=== PATIENT | male | born 1975 | race Caucasian/White ===

== ENCOUNTER 2020-02-06 10:51 | Inpatient (IN) | payer MEDICAID ==
[~2020-02-06] VITALS: Ht 175.3 cm; Wt 99.8 kg
[2020-02-06] MEDS ORDERED: IV NS 1000 ML 1,000 ML IV ONE (11:05)
[2020-02-06] MEDS ORDERED: AZITHROMYCIN 500MG/ D5W 250ML IVPB **ER PYXIS ONLY IV ONE (11:27)
[2020-02-06] MEDS ORDERED: CEFTRIAXONE /D5W 50ML IVPB **ER PYXIS IV ONE (11:27)
[2020-02-06] MEDS ORDERED: CEFTRIAXONE 1 G in IV DEXTROSE 5% 50 ML IV ONE (11:30)
[2020-02-06] MEDS ORDERED: AZITHROMYCIN IV 500 MG in IV DEXTROSE 5% 250 ML IV ONE (11:30)
[2020-02-06 11:54] LABS: BASOPHILS # (AUTO) 0.1 K/uL (0.0-8.0); BASOPHILS % (AUTO) 0.8 % (0.0-2.0); EOSINOPHILS # (AUTO) 0.4 K/uL (0.0-0.7); EOSINOPHILS % (AUTO) 2.7 % (0.0-7.0); HEMATOCRIT 40.1 % (36.7-47.1); HEMOGLOBIN 13.2 g/dL (12.5-16.3); LYMPHOCYTES # (AUTO) 1.9 K/uL (20.0-40.0); LYMPHOCYTES % (AUTO) 11.9 % (20.5-51.5); MEAN CORPUSCULAR HEMOGLOBIN 30.8 uug (23.8-33.4); MEAN CORPUSCULAR HGB CONC 33 g/dL (32.5-36.3); MEAN CORPUSCULAR VOLUME 93.4 fL (73.0-96.2); MONOCYTES # (AUTO) 1.1 K/uL (2.0-10.0); MONOCYTES % (AUTO) 7.3 % (0.0-11.0); NEUTROPHILS # (AUTO) 12.1 K/uL (1.8-8.9); NEUTROPHILS % (AUTO) 77.3 % (38.5-71.5); PLATELET COUNT (AUTO) 389 K/uL (152-348); RED BLOOD CELL COUNT(AUTO) 4.29 MIL/uL (4.06-5.63); WHITE BLOOD COUNT (AUTO) 15.7 K/uL (3.6-10.2)
[2020-02-06 12:04] LABS: CREATININE 0.8 mg/dL (0.6-1.3)
[2020-02-06 12:21] LABS: BILIRUBIN,TOTAL 0.6 mg/dL (0.2-1.0); TOTAL PROTEIN, SERUM 7.3 g/dL (6.4-8.2)
--- NOTE | 2020-02-06 13:10 | NUR ---
pt transfered to floor in stable condition, following hospital guidelines for covid 19. pt reamined on o2 via nc. breathing normally, no sign of distress. pt voided 500 ml in urinal.
--- NOTE | 2020-02-06 13:45 | NUR ---
Received patient in bed awake, alert and oriented. Patient is stable at this time, saturating well on 5L of oxygen. Patient denies any pain. IV intact and patent on left hand hep lock. No [id number] notes at this time, patient's temp is 99.2. Safety measures in place with call light and belongings within reach. Will continue to monitor.
[2020-02-06] MEDS ORDERED: ACETAMINOPHEN 650 MG/20.3 ML LIQUID UDC GT PRN (14:15)
[2020-02-06] MEDS ORDERED: ONDANSETRON 4 MG/2 ML VIAL IV PRN (14:15)
[2020-02-06] MEDS: ENOXAPARIN SODIUM 40 MG/0.4 ML DISP.SYRIN SQ SCH (15:09)
[2020-02-06 15:39] VITALS: BP 124/65
[2020-02-06] MEDS ORDERED: DEXAMETHASONE 2 MG TABLET PO SCH (17:00)
--- NOTE | 2020-02-06 18:44 | NUR ---
Patient is currently sleeping in bed. All safety precautions in place, bed in lowest position and locked, with call light and belonging in reach. Will endorse to oncoming nurse.
--- NOTE | 2020-02-06 19:25 | NUR ---
Patient in bed, awake. Patient denies any SOB or pain at this time. Patient is on 5L NC saturating WNL. Vitals stable. Pt is afebrile. LH 20G heplock is intact and patent. Patient is having few episodes of non productive cough. Safety measures in place. Bed low and locked in position. Call light within reach. Will continue with the plan of care.
[2020-02-06 20:46] VITALS: BP 125/68
[2020-02-07] VITALS: BP 110/66
[2020-02-07 04:52] VITALS: BP 122/64
[2020-02-07 06:04] LABS: BASOPHILS # (AUTO) 0.2 K/uL (0.0-8.0); BASOPHILS % (AUTO) 1.3 % (0.0-2.0); EOSINOPHILS # (AUTO) 0.3 K/uL (0.0-0.7); EOSINOPHILS % (AUTO) 1.9 % (0.0-7.0); HEMATOCRIT 40.3 % (36.7-47.1); HEMOGLOBIN 13.2 g/dL (12.5-16.3); LYMPHOCYTES # (AUTO) 1.2 K/uL (20.0-40.0); LYMPHOCYTES % (AUTO) 7.1 % (20.5-51.5); MEAN CORPUSCULAR HEMOGLOBIN 31.2 uug (23.8-33.4); MEAN CORPUSCULAR HGB CONC 33 g/dL (32.5-36.3); MEAN CORPUSCULAR VOLUME 94.9 fL (73.0-96.2); MONOCYTES % (AUTO) 5.8 % (0.0-11.0); NEUTROPHILS # (AUTO) 13.8 K/uL (1.8-8.9); NEUTROPHILS % (AUTO) 83.9 % (38.5-71.5); PLATELET COUNT (AUTO) 408 K/uL (152-348); RED BLOOD CELL COUNT(AUTO) 4.24 MIL/uL (4.06-5.63); WHITE BLOOD COUNT (AUTO) 16.5 K/uL (3.6-10.2)
[2020-02-07 06:34] LABS: BILIRUBIN,DIRECT 0.3 mg/dL (0.0-0.2); BILIRUBIN,TOTAL 0.7 mg/dL (0.2-1.0); POTASSIUM 4.7 mmol/L (3.5-5.1); TOTAL PROTEIN, SERUM 7.4 g/dL (6.4-8.2)
--- NOTE | 2020-02-07 06:53 | NUR ---
Pt slept throughout the night. Patient is awake and denies any acute distress or pain at this time. Vitals stable, on 5L NC saturating at 95%. Pt is Sinus Tachy 109 on tele monitor. Comfort care and needs attended. Safety measures in place. Bed low and locked in position. Call light within reach. Will endorse to the oncoming nurse accordingly.
--- NOTE | 2020-02-07 07:30 | NUR ---
RECIEVED PT SITTING UP AT EDGE OF BED. AWAKE, ALERT AND ORIENTED X4. NO APPARENT SOB NOTED. PT ON O2 5LNC SATURATION IS 92%. HR -SR-ST. NO C/O CHEST PAIN. AFEBRILE. PT COUGHS ON AND OFF, NON PRODUCTIVE. DENIES OF ANY DISCOMFORTS OR PAIN.
[2020-02-07] MEDS: DEXAMETHASONE 4 MG TABLET PO SCH (10:25)
[2020-02-07 12:00] VITALS: BP 105/72
[2020-02-07] MEDS: CEFTRIAXONE 1 G in IV DEXTROSE 5% 50 ML IV SCH (12:36)
[2020-02-07] MEDS: AZITHROMYCIN IV 500 MG in IV DEXTROSE 5% 250 ML IV SCH (13:13)
[2020-02-07 16:00] VITALS: BP 115/70
--- NOTE | 2020-02-07 16:30 | NUR ---
PT AMBULATED TO BR AND TOOK OFF HIS O2. SATURATION DROPPED IN THE 70'S, APPEARS TO BE SOB. PROVIDED A LONG TUBING NC O2. PLACED ON 6L AND SATURATION UP TO 93-94%.
--- NOTE | 2020-02-07 19:45 | NUR ---
Received patient alert and able to make needs known, ambulates denies pain or discomfort at this time, on O2 at 5LPM via NC,saturating 92 %. Heplock on left hand 20g patent and intact.Will continue to monitor.
[2020-02-07 20:00] VITALS: BP 138/64
[2020-02-07] MEDS: ENOXAPARIN SODIUM 40 MG/0.4 ML DISP.SYRIN SQ SCH (20:19)
[2020-02-08 00:26] VITALS: BP 112/74
[2020-02-08] MEDS ORDERED: hydrALAZINE HCL 10 MG TABLET PO SCH (00:45)
--- NOTE | 2020-02-08 03:30 | NUR ---
Patient noted with episodes of nonsustained mobitz 1.
[2020-02-08 04:00] VITALS: BP 122/69
[2020-02-08 06:21] LABS: BASOPHILS % (AUTO) 0.2 % (0.0-2.0); HEMATOCRIT 41.5 % (36.7-47.1); HEMOGLOBIN 13.7 g/dL (12.5-16.3); LYMPHOCYTES % (AUTO) 5.4 % (20.5-51.5); MEAN CORPUSCULAR HEMOGLOBIN 31.3 uug (23.8-33.4); MEAN CORPUSCULAR HGB CONC 33 g/dL (32.5-36.3); MEAN CORPUSCULAR VOLUME 94.7 fL (73.0-96.2); MONOCYTES # (AUTO) 0.6 K/uL (2.0-10.0); MONOCYTES % (AUTO) 3.3 % (0.0-11.0); NEUTROPHILS # (AUTO) 17.7 K/uL (1.8-8.9); NEUTROPHILS % (AUTO) 91.1 % (38.5-71.5); PLATELET COUNT (AUTO) 453 K/uL (152-348); RED BLOOD CELL COUNT(AUTO) 4.38 MIL/uL (4.06-5.63); WHITE BLOOD COUNT (AUTO) 19.4 K/uL (3.6-10.2)
[2020-02-08 06:50] LABS: CREATININE 0.9 mg/dL (0.6-1.3); POTASSIUM 4.3 mmol/L (3.5-5.1)
--- NOTE | 2020-02-08 07:00 | NUR ---
pt rested well in between care; tolerated 6L humidified oxygen; observed to have sleep apnea last night.
--- NOTE | 2020-02-08 08:14 | NUR ---
received pt. resting in bed alert oriented x4. pt denies pain. pt. does have SOB on 6 L NC. pt saturating highest at 90 with periods of desaturation from 86 up. switching NC to Face mask to see if pt. does better on face mask. will give pt. PRN inhaler. pt. has non productive cough. safety measures in place. call light within reach. will continue to monitor pt.
[2020-02-08] MEDS: ALBUTEROL SULFATE 8 GM HFA.AER.AD IH PRN ×2 (08:49→16:22)
[2020-02-08] MEDS: DEXAMETHASONE 4 MG TABLET PO SCH (08:49)
[2020-02-08] MEDS: CEFTRIAXONE 1 G in IV DEXTROSE 5% 50 ML IV SCH (11:00)
--- NOTE | 2020-02-08 11:31 | NUR ---
seen by ANA ROSA Blas pt. desaturating on 10 L face mask. Called RT to put pt. on high flow nasal canula. RT Javed will come up shortly.
[2020-02-08 12:04] VITALS: BP 102/68
[2020-02-08] MEDS: AZITHROMYCIN IV 500 MG in IV DEXTROSE 5% 250 ML IV SCH (12:14)
[2020-02-08 12:28] LABS: ABG BASE EXCESS 9.2 mmol/L; ABG HCO3 36.6 mmol/L; ABG PCO2 62.3 mmHg (35.0-45.0); ABG PH 7.387 (7.350-7.450); ABG PO2 59.8 mmHg (75.0-100.0); ABG SITE LEFT RADIAL; ABG TOTAL HEMOGLOBIN 14.1 G/dL (13.5-18.0); COHb 1.8 % (0.5-1.5); MetHb 0.2 % (0.0-1.5); O2Hb 89.2 % (94.0-97.0)
[2020-02-08 16:00] VITALS: BP 115/66
--- NOTE | 2020-02-08 16:24 | NUR ---
covid results negative reported by lab
[2020-02-08 17:50] LABS: *BILIRUBIN,URIN NEGATIVE (NEGATIVE); *BLOOD, URINE NEGATIVE (NEGATIVE); *CLARITY,URINE CLEAR (CLEAR); *KETONES,URINE NEGATIVE (NEGATIVE); *UROBILINOGEN,URINE 0.2 E.U./dl (NORMAL); LEUKOCYTE ESTERASE ,URINE NEGATIVE (NEGATIVE); NITRITE, URINE NEGATIVE (NEGATIVE); PH,URINE 5.5 (5.0-8.0); UGLUCOSE NEGATIVE (NEGATIVE)
[2020-02-08 17:51] LABS: *COLOR,URINE YELLOW (YELLOW)
--- NOTE | 2020-02-08 18:30 | NUR ---
RT put pt. on non rebreather mask and did ABGs. Results came back and RT and BAIL BONDING AGENT think pt. may have COPD and to put pt. back on simple face mask at 6 L and O2 goal of 88-92% Pt. saturating 89-90% on simple face mask. BAIL BONDING AGENT wanted viral panel to be ordered. New order for another covid test by ID doctor.
--- NOTE | 2020-02-08 20:00 | NUR ---
Patient received into care, laying in bed, resting comfortably. Pt is alert/oriented x3 and has no complaints of pain or discomfort at this time. Pt is currently wearing a simple mask with O2 running at 6L/min and an oxygen saturation rate of 90%. All safety, fall, and isolation precaution measures are in place. Will continue to monitor and assess.
[2020-02-08 20:12] VITALS: BP 113/75
[2020-02-08] MEDS: ENOXAPARIN SODIUM 40 MG/0.4 ML DISP.SYRIN SQ SCH (20:27)
[2020-02-08 21:46] LABS: BACTERIA,URINE FEW /HPF (NONE SEEN); RBC,URINE 0-3 /HPF (0-3); SQUAMOUS EPITHELIAL CELL,UR FEW /HPF (NONE SEEN); WBC,URINE 0-3 /HPF (0-3)
--- NOTE | 2020-02-08 23:53 | NUR ---
This nurse spoke with patient during hourly rounding and patient advised this nurse that he has a history of asthma. This nurse will add this information to [facility].
[2020-02-09 00:13] VITALS: BP 105/67
--- NOTE | 2020-02-09 03:05 | NUR ---
This nurse was notified by MARYANA Jaramillo that patient's oxygen saturation is between 78 - 82% with simple mask at 6L/min. Charge nurse Radha contacted respiratory and this nurse elevated pt's head of bed and stayed in room until Dustin from respiratory arrived. RT Dustin placed pt on non-rebreather at max oxygen and pt's oxygen saturation climbed to 90%. This nurse stayed with patient until oxygen saturation was at 94%. Non-rebreather left in place and this nurse will continue to closely monitor and assess oxygen saturation.
[2020-02-09 04:20] VITALS: BP 101/67
--- NOTE | 2020-02-09 05:00 | NUR ---
Patient slept intermittently throughout night with no complaints of pain or discomfort verbalized or noted/observed by this nurse. Pt has numerous episodes of sleep apnea this shift that may have resulted in patient becoming hypoxic at 0303h. The hypoxic episode was addressed with RT Chan replacing the simple mask running oxygen at 6L/min with a non-rebreather mask running oxygen at 15L/min. The patient oxygen saturation increased from the 80's to the mid 90's. This nurse continued to closely observe pt's oxygen saturation since application of non-rebreather mask. All safety, fall, and isolation precaution measures remain in place. Call light and personal items remain within reach.
[2020-02-09 06:20] LABS: BASOPHILS # (AUTO) 0.1 K/uL (0.0-8.0); BASOPHILS % (AUTO) 0.3 % (0.0-2.0); EOSINOPHILS # (AUTO) 0.1 K/uL (0.0-0.7); EOSINOPHILS % (AUTO) 0.3 % (0.0-7.0); HEMATOCRIT 41.1 % (36.7-47.1); HEMOGLOBIN 13.5 g/dL (12.5-16.3); LYMPHOCYTES % (AUTO) 9.3 % (20.5-51.5); MEAN CORPUSCULAR HEMOGLOBIN 30.8 uug (23.8-33.4); MEAN CORPUSCULAR HGB CONC 33 g/dL (32.5-36.3); MEAN CORPUSCULAR VOLUME 93.6 fL (73.0-96.2); MONOCYTES # (AUTO) 1.2 K/uL (2.0-10.0); MONOCYTES % (AUTO) 5.6 % (0.0-11.0); NEUTROPHILS # (AUTO) 17.8 K/uL (1.8-8.9); NEUTROPHILS % (AUTO) 84.5 % (38.5-71.5); PLATELET COUNT (AUTO) 497 K/uL (152-348); RED BLOOD CELL COUNT(AUTO) 4.39 MIL/uL (4.06-5.63)
[2020-02-09 06:30] LABS: CREATININE 0.8 mg/dL (0.6-1.3); MAGNESIUM 2.1 mg/dL (1.8-2.4); PHOSPHOROUS 4.2 mg/dL (2.5-4.9); POTASSIUM 4.3 mmol/L (3.5-5.1)
--- NOTE | 2020-02-09 08:00 | NUR ---
Received Patient in bed, awake, Malay Speaking. On Oxygen at 10L via Non rebreather Mask, saturating 90-92%. with episode of dry cough, No complain of SOB. No complain of Pain or discomfort. kept clean and comfortable. Will continue to monitor.
[2020-02-09] MEDS: DEXAMETHASONE 4 MG TABLET PO SCH (08:36)
[2020-02-09] MEDS: ACETAzolamide SODIUM 500 MG VIAL IV SCH (10:02)
--- NOTE | 2020-02-09 10:30 | NUR ---
Patient had a mobitz type 2 on satellite project site monitor, Dr. Champion made aware.
[2020-02-09] MEDS: ALBUTEROL SULFATE 8 GM HFA.AER.AD IH PRN (10:43)
--- NOTE | 2020-02-09 10:54 | NUR ---
Patient on 10L via Non rebreather Mask, tried weaning down the Oxygen to 8L via Non rebreather, saturating 82-83%, SHOP TECH Kaleb made aware. ABG STAT was Ordered.
[2020-02-09 11:16] LABS: ABG BASE EXCESS 6.7 mmol/L; ABG HCO3 33.2 mmol/L; ABG PCO2 55.1 mmHg (35.0-45.0); ABG PH 7.398 (7.350-7.450); ABG PO2 54.8 mmHg (75.0-100.0); ABG SITE RIGHT RADIAL; ABG TOTAL HEMOGLOBIN 14.5 G/dL (13.5-18.0); COHb 1.2 % (0.5-1.5); MetHb 0.1 % (0.0-1.5); O2Hb 87.5 % (94.0-97.0)
--- NOTE | 2020-02-09 11:30 | NUR ---
Patient on Oxygen 10L via Non rebreather Mask, saturating 89-92%. No complain of SOB.
[2020-02-09] MEDS: CEFTRIAXONE 1 G in IV DEXTROSE 5% 50 ML IV SCH (11:59)
[2020-02-09 12:00] VITALS: BP 107/71
--- NOTE | 2020-02-09 12:00 | NUR ---
Patient is saying that he is not taking any home medication, relayed to pharmacy.
--- NOTE | 2020-02-09 12:30 | NUR ---
Placed on Oxygen at 7L via nasal canula, saturating 90-92%.
[2020-02-09] MEDS: AZITHROMYCIN IV 500 MG in IV DEXTROSE 5% 250 ML IV SCH (12:44)
[2020-02-09 16:00] VITALS: BP 104/70
--- NOTE | 2020-02-09 17:31 | NUR ---
received negative 2nd covid 19 result, Brandon OSEGUERA made aware.
--- NOTE | 2020-02-09 18:12 | NUR ---
Patient in bed, awake, alert and verbally responsive. On Oxygen at 6L via nasal canula, saturating 89-92%. On continuos Pulse Ox monitor. No complain of SOB. No complain of pain or discomfort. Covid 19 result is Negative x 2, kept clean and comfortable. Will Endorse to Oncoming Nurse.
--- NOTE | 2020-02-09 20:00 | NUR ---
Received patient awake and alert. Patient shows no signs or symptoms of distress at this time. Vital signs stable Afebrile at this time. O2 saturation 88% on 7L NC. Bed set to lowest position. Call light within reach. Side rails X2 are up. Will continue to monitor patient. Addendum: 02/09/20 at 2144 by TANIKA GAGE RN NSR on tele monitor
[2020-02-09 20:10] VITALS: BP 117/71
[2020-02-09] MEDS: ENOXAPARIN SODIUM 40 MG/0.4 ML DISP.SYRIN SQ SCH (20:12)
--- NOTE | 2020-02-09 22:30 | NUR ---
O2 saturation 83% after urinating. Patient placed on simple mask 6L and is now saturating 91%. Will continue to monitor patient.
[2020-02-10 00:16] VITALS: BP 103/54
--- NOTE | 2020-02-10 02:29 | NUR ---
Pt had one episode of 2nd degree AV block type II at 0215 and lasted for 15 seconds. HR dropped to 40. Pt now NSR on tele monitor 90s. Patient in no apparent distress at this time. Patient is resting comfortably in bed. Will continue to monitor patient.
[2020-02-10 04:40] VITALS: BP 103/60
--- NOTE | 2020-02-10 06:03 | NUR ---
Patient shows no signs or symptoms of distress at this time. Vital signs stable. NSR on tele monitor. Patient now on 8L simple mask to maintain O2 saturation 88-92%. Will endorse patient to day shift nurse in stable condition.
[2020-02-10 07:13] LABS: BASOPHILS # (AUTO) 0.1 K/uL (0.0-8.0); BASOPHILS % (AUTO) 0.4 % (0.0-2.0); EOSINOPHILS # (AUTO) 0.1 K/uL (0.0-0.7); EOSINOPHILS % (AUTO) 0.5 % (0.0-7.0); HEMOGLOBIN 14.5 g/dL (12.5-16.3); LYMPHOCYTES # (AUTO) 2.2 K/uL (20.0-40.0); LYMPHOCYTES % (AUTO) 11.1 % (20.5-51.5); MEAN CORPUSCULAR HEMOGLOBIN 30.4 uug (23.8-33.4); MEAN CORPUSCULAR HGB CONC 32 g/dL (32.5-36.3); MEAN CORPUSCULAR VOLUME 94.2 fL (73.0-96.2); MONOCYTES # (AUTO) 1.2 K/uL (2.0-10.0); MONOCYTES % (AUTO) 5.9 % (0.0-11.0); NEUTROPHILS # (AUTO) 16.2 K/uL (1.8-8.9); NEUTROPHILS % (AUTO) 82.1 % (38.5-71.5); PLATELET COUNT (AUTO) 531 K/uL (152-348); RED BLOOD CELL COUNT(AUTO) 4.78 MIL/uL (4.06-5.63); WHITE BLOOD COUNT (AUTO) 19.8 K/uL (3.6-10.2)
--- NOTE | 2020-02-10 07:30 | NUR ---
Received patient in bed,Awake. On Oxygen at 8L via simple mask saturating 90%. No complain of SOB, still with episode of dry cough but No complain of Sore throat. Patient walked to the toilet, saturation went down to 82-84%. Placed patient on nasal canula at 8L, saturating 88-90%. No complain of Pain or discomfort. Afebrile. Kept clean and comfortable. Will continue to monitor.
[2020-02-10 07:32] LABS: CREATININE 0.9 mg/dL (0.6-1.3); MAGNESIUM 2.4 mg/dL (1.8-2.4); PHOSPHOROUS 4.4 mg/dL (2.5-4.9); POTASSIUM 4.2 mmol/L (3.5-5.1)
[2020-02-10] MEDS: ACETAzolamide SODIUM 500 MG VIAL IV SCH (08:12)
[2020-02-10] MEDS: DEXAMETHASONE 4 MG TABLET PO SCH (08:13)
[2020-02-10 09:47] VITALS: BP 111/64
[2020-02-10] MEDS ORDERED: IOHEXOL 350 100 ML INFUS..BTL ONE (10:19)
[2020-02-10] MEDS ORDERED: IV NORMAL SALINE 250 ML IV ONE (10:19)
[2020-02-10] MEDS ORDERED: SWABABLE VALVE TRANSFER SET EA MC ONE (10:19)
[2020-02-10] MEDS: CEFTRIAXONE 1 G in IV DEXTROSE 5% 50 ML IV SCH (11:24)
[2020-02-10] MEDS: AZITHROMYCIN IV 500 MG in IV DEXTROSE 5% 250 ML IV SCH (12:35)
[2020-02-10] MEDS: IPRATROPIUM BROMIDE 0.5 MG/2.5 ML NEBU NEB SCH ×2 (13:48→22:24)
[2020-02-10] MEDS: ALBUTEROL SULFATE 2.5 MG/ 0.5 ML NEBU NEB SCH ×2 (13:48→22:24)
[2020-02-10 16:19] VITALS: BP 119/71
--- NOTE | 2020-02-10 18:02 | NUR ---
Patient in bed, awake and verbally responsive. On Oxygen at 6L via Venturi Mask, saturating 90%. No complain of Pain or discomfort noted. All needs attended and met. Kept clean and comfortable. All needs attended and met. Will endorse to Oncoming Nurse.
--- NOTE | 2020-02-10 20:00 | NUR ---
Patient received into care sitting up on side of bed. Pt is alert/oriented x3, has no complaints of pain or discomfort, and is currently receiving oxygen at 6L/min via venturi mask. Oxygen saturation on bedside monitor is at 85 to 86%, this nurse increased oxygen to 8L/min and patient is now saturating at 88-90%All safety and fall precaution measures are in place. Call light and personal items are within reach at all times. Will continue to monitor and assess.
[2020-02-10] MEDS: ENOXAPARIN SODIUM 40 MG/0.4 ML DISP.SYRIN SQ SCH (20:08)
[2020-02-10 20:18] VITALS: BP 111/70
--- NOTE | 2020-02-10 23:52 | NUR ---
This nurse was notified by BATCH TESTER that pt's oxygen saturation was at 80% This nurse found pt asleep and woke him, which resulted in pt's oxygen saturation increasing to 85%, with the venturi mask on 6L/min oxygen. This nurse contacted RT who provided pt with prescribed BiPAP setup at 15+/5+ 18 RR. Pt now has an oxygen saturation ranging from 89-92% at rest. Will continue to monitor and assess.
[2020-02-11 00:12] VITALS: BP 103/60
--- NOTE | 2020-02-11 04:02 | NUR ---
PT PLACED ON BI/PAP WITH LARGE MASK @ 23:45, WITH SETTINGS, 15/5, RR18, 40%, KEEP SAT ABOVE 90%, PT TENDS TO BREATH RAPID AT TIMES, PULSE OXY CONT AT BEDSIDE, SAT 91-92% APPROX, PT DOES WAKE UP TIMES, DOING BETTER, WITH BI/PAP.Layo ROSEP Addendum: 02/11/20 at 0404 by HILARIO MATTHEWS RT Amended: Links added.
[2020-02-11 04:16] VITALS: BP 111/74
--- NOTE | 2020-02-11 05:00 | NUR ---
Pt slept intermittently throughout night after application of BiPAP. There were no further episodes of hypoxia after BiPAP applied and patient has an oxygen saturation that is ranging between 89-92% All prescribed medications for this shift were provided to patient and tolerated well, with no ASE verbalized by patient or noted/observed by this nurse. All safety, fall, and isolation precautions remain in place. Call light and personal items remain within reach.
[2020-02-11] MEDS: IPRATROPIUM BROMIDE 0.5 MG/2.5 ML NEBU NEB SCH ×3 (07:53→20:35)
[2020-02-11] MEDS: ALBUTEROL SULFATE 2.5 MG/ 0.5 ML NEBU NEB SCH ×3 (07:54→20:35)
[2020-02-11] MEDS: DEXAMETHASONE 4 MG TABLET PO SCH (08:51)
[2020-02-11] MEDS: ACETAzolamide SODIUM 500 MG VIAL IV SCH (08:51)
[2020-02-11 08:59] LABS: BASOPHILS # (AUTO) 0.3 K/uL (0.0-8.0); BASOPHILS % (AUTO) 1.4 % (0.0-2.0); EOSINOPHILS # (AUTO) 0.2 K/uL (0.0-0.7); EOSINOPHILS % (AUTO) 1.2 % (0.0-7.0); HEMATOCRIT 46.1 % (36.7-47.1); HEMOGLOBIN 15.2 g/dL (12.5-16.3); LYMPHOCYTES # (AUTO) 2.7 K/uL (20.0-40.0); LYMPHOCYTES % (AUTO) 13.9 % (20.5-51.5); MEAN CORPUSCULAR HEMOGLOBIN 30.6 uug (23.8-33.4); MEAN CORPUSCULAR HGB CONC 33 g/dL (32.5-36.3); MEAN CORPUSCULAR VOLUME 92.7 fL (73.0-96.2); MONOCYTES # (AUTO) 1.1 K/uL (2.0-10.0); MONOCYTES % (AUTO) 5.6 % (0.0-11.0); NEUTROPHILS % (AUTO) 77.9 % (38.5-71.5); PLATELET COUNT (AUTO) 568 K/uL (152-348); RED BLOOD CELL COUNT(AUTO) 4.97 MIL/uL (4.06-5.63); WHITE BLOOD COUNT (AUTO) 19.2 K/uL (3.6-10.2)
[2020-02-11 09:16] LABS: CREATININE 0.8 mg/dL (0.6-1.3); MAGNESIUM 2.3 mg/dL (1.8-2.4); POTASSIUM 3.7 mmol/L (3.5-5.1)
--- NOTE | 2020-02-11 10:10 | NUR ---
Received patient in room, patient is AAO x 4, Romansh speaking mostly but able to express self in Kazakh. Pt. is on Verturi-mask at this time at 6LPM with O2 sating at 90%. Routine breathing treatment administered by RT. All other vital signs stable at this time. Afebrile. Due morning medications administered as ordered. IV site on Left hand gauge 20 intact and patent. Patient is mostly independent for self care. Safety measures in place, needs attended and met and will continue with care.
[2020-02-11 11:40] VITALS: BP 103/64
[2020-02-11] MEDS: CEFTRIAXONE 1 G in IV DEXTROSE 5% 50 ML IV SCH (12:10)
[2020-02-11] MEDS: AZITHROMYCIN IV 500 MG in IV DEXTROSE 5% 250 ML IV SCH (13:09)
[2020-02-11] MEDS ORDERED: DICYCLOMINE HCL 10 MG CAPSULE PO SCH (13:15)
--- NOTE | 2020-02-11 13:50 | NUR ---
IV ATB administered as ordered. Patient compliant with care. VS stable at this time. on continuos O2 sat monitoring. Needs attended and will continue with care.
[2020-02-11] MEDS ORDERED: DICYCLOMINE HCL 10 MG CAPSULE PO ONE (14:00)
[2020-02-11 16:00] VITALS: BP 107/58
--- NOTE | 2020-02-11 19:56 | NUR ---
End of shift report given to PM nurse.
[2020-02-11 20:50] VITALS: BP 100/63
[2020-02-11] MEDS: ENOXAPARIN SODIUM 40 MG/0.4 ML DISP.SYRIN SQ SCH (20:50)
[2020-02-12 01:07] VITALS: BP 100/61
--- NOTE | 2020-02-12 02:26 | NUR ---
Received Patient in bed. AAO x3. On O2 6 L via venturi mask. Bruneian speaking but can communicate in Bengali as well. Able to make needs known. No complain of pain. All due medication given as ordered and well tolerated. CPAP machine was utilized throughout the night. Safety measures maintained, fall prevention observed. All needs attended promptly. Bed in locked and low position, side rails up x2 for safety, bed alarm on. Call light and frequently using items within reach. Continue to monitor and will endorse to the oncoming nurse accordingly.
[2020-02-12 05:36] VITALS: BP 106/64
--- NOTE | 2020-02-12 06:01 | NUR ---
IV line was inserted on left hand, G 22. Will endorse to oncoming nurse.
[2020-02-12 07:03] LABS: BASOPHILS # (AUTO) 0.1 K/uL (0.0-8.0); BASOPHILS % (AUTO) 0.4 % (0.0-2.0); EOSINOPHILS # (AUTO) 0.3 K/uL (0.0-0.7); EOSINOPHILS % (AUTO) 1.4 % (0.0-7.0); HEMATOCRIT 43.8 % (36.7-47.1); HEMOGLOBIN 14.4 g/dL (12.5-16.3); LYMPHOCYTES # (AUTO) 2.8 K/uL (20.0-40.0); LYMPHOCYTES % (AUTO) 13.9 % (20.5-51.5); MEAN CORPUSCULAR HEMOGLOBIN 30.6 uug (23.8-33.4); MEAN CORPUSCULAR HGB CONC 33 g/dL (32.5-36.3); MEAN CORPUSCULAR VOLUME 92.9 fL (73.0-96.2); NEUTROPHILS % (AUTO) 79.3 % (38.5-71.5); PLATELET COUNT (AUTO) 615 K/uL (152-348); RED BLOOD CELL COUNT(AUTO) 4.71 MIL/uL (4.06-5.63); WHITE BLOOD COUNT (AUTO) 20.2 K/uL (3.6-10.2)
[2020-02-12 07:14] LABS: MAGNESIUM 2.3 mg/dL (1.8-2.4); PHOSPHOROUS 4.2 mg/dL (2.5-4.9)
[2020-02-12] MEDS: ALBUTEROL SULFATE 2.5 MG/ 0.5 ML NEBU NEB SCH ×3 (08:05→21:24)
[2020-02-12] MEDS: IPRATROPIUM BROMIDE 0.5 MG/2.5 ML NEBU NEB SCH ×3 (08:05→21:23)
--- NOTE | 2020-02-12 08:10 | NUR ---
Receive patient in bed, awake, alert and oriented. Patient is complaining of dryness in his throat but shows no sign of respiratory distress. Saturating well on 6 L venturi mask. The IV on left hand is a 22 gauge and is intact and patent. Patient is afebrile at this time. Safety precautions in place, bed is locked in the lowest position and patient' call light and belongings are within reach. Will continue to monitor.
[2020-02-12] MEDS: DEXAMETHASONE 4 MG TABLET PO SCH (08:29)
[2020-02-12] MEDS: ACETAzolamide SODIUM 500 MG VIAL IV SCH (08:29)
--- NOTE | 2020-02-12 10:00 | NUR ---
Made hospitalist Wan aware of patient complaint about dryness in his throat, he said the patient could be place on humidified oxygen. RT made aware but says it will not work because the pressure is too high. Charge nurse also made aware. Will continue to hydrate and monitor patient.
[2020-02-12] MEDS: CEFTRIAXONE 1 G in IV DEXTROSE 5% 50 ML IV SCH (11:23)
[2020-02-12 12:00] VITALS: BP 103/67
--- NOTE | 2020-02-12 15:49 | NUR ---
Patient is still on 6L on a venturi mask and still saturating within the range of 88-92%. Current oxygen saturation is 91%. Will continue to observe and monitor.
[2020-02-12 16:37] VITALS: BP 103/67
--- NOTE | 2020-02-12 18:11 | NUR ---
Patient's IV is infiltrated and leaking fluids within the dressing. Removed IV and covered with gauge and tape. Will try inserting a new IV line. Addendum: 02/12/20 at 1813 by MADAI CHIN RN Patient does not report any pain and no redness was noted. Will continue to monitor.
--- NOTE | 2020-02-12 18:30 | NUR ---
IV inserted on the right hand.
--- NOTE | 2020-02-12 18:43 | NUR ---
Patient shows no signs or symptoms of distress at this time. Vital signs stable. Patient now on 6L venturi mask to maintain O2 saturation 88-92%. Will endorse patient to day shift nurse in stable condition.
--- NOTE | 2020-02-12 19:30 | NUR ---
RECEIVED PT AWAKE, ALERT AND ORIENTEDX4. PT IN NO ACUTE RESPIRATORY DISTRESS. IV INTACT. PT ON 6L VENTURI MASK. SAFETY AND COMFORT PROVIDED. WILL CONTINUE TO MONITOR.
[2020-02-12] MEDS: ENOXAPARIN SODIUM 40 MG/0.4 ML DISP.SYRIN SQ SCH (20:30)
[2020-02-12 21:02] VITALS: BP 103/60
[2020-02-13 00:07] VITALS: BP 99/45
[2020-02-13 04:55] VITALS: BP 103/62
--- NOTE | 2020-02-13 06:26 | NUR ---
PT SLEPT INTERMITTENTLY. PT IN NO ACUTE DISTRESS. IV INTACT. PT ON 6L VENTURI MASK. PT REFUSED HIS BIPAP. PRESCRIBED MEDICATION GIVEN AND PT TOLERATED IT WELL. TYLENOL 650 MG GIVEN AT PRN FOR PAIN. PT TOLERATED IT WELL.SAFETY AND COMFORT PROVIDED. ALL NEEDS ARE MET. WILL ENDORSE TO INCOMING NURSE FOR CONTINUITY OF CARE.
[2020-02-13 06:33] LABS: BASOPHILS # (AUTO) 0.1 K/uL (0.0-8.0); BASOPHILS % (AUTO) 0.4 % (0.0-2.0); EOSINOPHILS # (AUTO) 0.3 K/uL (0.0-0.7); EOSINOPHILS % (AUTO) 1.6 % (0.0-7.0); HEMATOCRIT 43.9 % (36.7-47.1); HEMOGLOBIN 14.5 g/dL (12.5-16.3); LYMPHOCYTES # (AUTO) 3.1 K/uL (20.0-40.0); LYMPHOCYTES % (AUTO) 15.8 % (20.5-51.5); MEAN CORPUSCULAR HEMOGLOBIN 30.4 uug (23.8-33.4); MEAN CORPUSCULAR HGB CONC 33 g/dL (32.5-36.3); MONOCYTES # (AUTO) 1.1 K/uL (2.0-10.0); MONOCYTES % (AUTO) 5.5 % (0.0-11.0); NEUTROPHILS # (AUTO) 15.2 K/uL (1.8-8.9); NEUTROPHILS % (AUTO) 76.7 % (38.5-71.5); PLATELET COUNT (AUTO) 587 K/uL (152-348); RED BLOOD CELL COUNT(AUTO) 4.77 MIL/uL (4.06-5.63); WHITE BLOOD COUNT (AUTO) 19.8 K/uL (3.6-10.2)
[2020-02-13 06:55] LABS: BILIRUBIN,TOTAL 0.5 mg/dL (0.2-1.0); MAGNESIUM 2.1 mg/dL (1.8-2.4); PHOSPHOROUS 3.8 mg/dL (2.5-4.9); POTASSIUM 3.7 mmol/L (3.5-5.1); TOTAL PROTEIN, SERUM 7.5 g/dL (6.4-8.2)
--- NOTE | 2020-02-13 07:30 | NUR ---
PATIENT IS IN BED SLEEPING DEEPLY AND SNORING WITH HIS FACE MASK OFF HIS FACE OFF AND ON AND WHEN ITS OFRF HIS SATS DROPS TO 81 HAS TO BE WOKEN UP AND FACE MASK REAPPLIED HE IS ON VENTURI MASK AT 6L/M NOTED WITH EPISODES OF COUGHING PER REPORT PATIENT REFUSED THE BIPAP LAST NITE REMAIN ON RESPIRATORY ISOLATION AT THIS TIME WILL CONTINUE TO OBSERVE.CALL LIGHTS AND HIS PERSONAL BELONGINGS ARE WITHIN EASY REACH.
[2020-02-13] MEDS: IPRATROPIUM BROMIDE 0.5 MG/2.5 ML NEBU NEB SCH ×3 (08:02→19:38)
[2020-02-13] MEDS: ALBUTEROL SULFATE 2.5 MG/ 0.5 ML NEBU NEB SCH ×3 (08:02→19:38)
[2020-02-13] MEDS: DEXAMETHASONE 4 MG TABLET PO SCH (08:30)
[2020-02-13] MEDS: ACETAzolamide SODIUM 500 MG VIAL IV SCH (08:30)
--- NOTE | 2020-02-13 08:33 | NUR ---
PATIENT SEEN AND EXAMINED BY EVIE OSEGUERA WITH NEW ORDERS AND NOTED ORACLE SOA ARCHITECT AWARE THAT THE PATIENT SPOUSE WILL LIKE TO SPEAK WITH HIM AND HE STATED OKAY WILL CALL HER.
--- NOTE | 2020-02-13 11:00 | NUR ---
PHYSICAL THERAPY HERE FOR EVALUATION AND STATED THAT PATIENT IS ABLE TO AMBULATE BUT CANNOT GO LONGER DISTANCE DUE TO GETS SHORT OF BREATH ON ROOM AIR HIS O2 IS AT 6L AT THIS TIME AND THE PHYSICAL THERAPIST STATED WILL CALL MICHELLE OSEGUERA RE HER CONCERNS.
[2020-02-13 11:47] VITALS: BP 108/69
[2020-02-13 15:27] VITALS: BP 105/67
--- NOTE | 2020-02-13 17:38 | NUR ---
RESTING IN BED WITH OCCASSIONAL COUGH STATED ITS DRY BUT HE WAS ABLE TO SPIT UP SOME SECRETION FOR SPUTUM TEST EARLIER TODAY.REMAIN ON O2 BY VETRI MASK AT 6L/M WITH SATS AT 93-94 PERCENT DENIES DISCOMFORTS BUT STATED THAT HE IS TIRED OF COUGHING ALL THE TIME REMAIN ON COVID ISOLATION ORDERED CALL LIGHTS AND PERSONAL BELONGINGS ARE WITHIN EASY REACH NOT IN DISTRESS AT THIS TIME.
--- NOTE | 2020-02-13 19:20 | NUR ---
Received patient sitting upright in bed. AAOx4, mainly Albanian speaking. Noted with occasional non-productive cough. On 50% O2 at 6LPM via venturi mask. O2 sat at 95% at this time. Denies any SOB or pain. NSR on tele at 92/min. VS WNL. Droplet and contact precaution observed. Safety measure initiated and call mena within reached.
[2020-02-13 19:40] VITALS: BP 108/74
[2020-02-13] MEDS: ENOXAPARIN SODIUM 40 MG/0.4 ML DISP.SYRIN SQ SCH (20:16)
[2020-02-14 00:29] VITALS: BP 99/60
[2020-02-14 05:11] VITALS: BP 105/43
--- NOTE | 2020-02-14 06:11 | NUR ---
Slept well last night. Still with occasional non-productive cough. 50% O2 at 6LPM via venturi mask. O2 sat at 94%. Denies any SOB or pain. NSR on tele at 70/min. Needs assessed and attended to. Droplet and contact precaution maintained. Safety measure maintained and call mena within reached.
[2020-02-14 06:21] LABS: BASOPHILS # (AUTO) 0.1 K/uL (0.0-8.0); BASOPHILS % (AUTO) 0.4 % (0.0-2.0); EOSINOPHILS # (AUTO) 0.3 K/uL (0.0-0.7); EOSINOPHILS % (AUTO) 1.9 % (0.0-7.0); HEMATOCRIT 42.7 % (36.7-47.1); HEMOGLOBIN 14.1 g/dL (12.5-16.3); LYMPHOCYTES # (AUTO) 2.6 K/uL (20.0-40.0); LYMPHOCYTES % (AUTO) 14.2 % (20.5-51.5); MEAN CORPUSCULAR HEMOGLOBIN 30.4 uug (23.8-33.4); MEAN CORPUSCULAR HGB CONC 33 g/dL (32.5-36.3); MONOCYTES # (AUTO) 1.1 K/uL (2.0-10.0); MONOCYTES % (AUTO) 5.9 % (0.0-11.0); NEUTROPHILS # (AUTO) 14.4 K/uL (1.8-8.9); NEUTROPHILS % (AUTO) 77.6 % (38.5-71.5); PLATELET COUNT (AUTO) 621 K/uL (152-348); RED BLOOD CELL COUNT(AUTO) 4.65 MIL/uL (4.06-5.63); WHITE BLOOD COUNT (AUTO) 18.6 K/uL (3.6-10.2)
[2020-02-14 06:34] LABS: MAGNESIUM 2.1 mg/dL (1.8-2.4); PHOSPHOROUS 3.5 mg/dL (2.5-4.9); POTASSIUM 3.5 mmol/L (3.5-5.1)
--- NOTE | 2020-02-14 07:30 | NUR ---
IN BED SLEEPING AND SNORING LOUD WITH O2 BY VENTRI MASK AT 6L/M NO SOB AT THIS TIME CALL LIGHTS AND PERSONAL BELONGINGS ARE WITHIN EASY REACH MADE COMFORTABLE WILL CONTINUE TO OBSERVE.
[2020-02-14] MEDS: DEXAMETHASONE 4 MG TABLET PO SCH (08:14)
[2020-02-14] MEDS: ACETAzolamide SODIUM 500 MG VIAL IV SCH (08:14)
[2020-02-14] MEDS: ALBUTEROL SULFATE 2.5 MG/ 0.5 ML NEBU NEB SCH ×3 (08:28→19:30)
[2020-02-14] MEDS: IPRATROPIUM BROMIDE 0.5 MG/2.5 ML NEBU NEB SCH ×3 (08:28→19:30)
--- NOTE | 2020-02-14 11:51 | NUR ---
PATIENT SEEN HEATHER EXAMINED BY EMMA OSEGUERA WITH NEW ORDERS AND NOTED.
[2020-02-14 12:00] VITALS: BP 120/68
[2020-02-14 16:34] VITALS: BP 110/67
--- NOTE | 2020-02-14 17:44 | NUR ---
DR GARBER HERE SEEN PATIENT WITH NEW ORDERS AND NOTED.
--- NOTE | 2020-02-14 18:15 | NUR ---
BEHAVIORAL HEALTH PROFESSIONAL HERE AND RESPIRATORY PATOGEN COLLECTED ORDERED
--- NOTE | 2020-02-14 18:52 | NUR ---
PER THE PHARMACY PATIENT NEEDS TO HAVE EKG CHECKED TOMORROW PATIENT WILL BE STARTING LEVAQUIN AND DIFLUCAN EMMA AWARE AND NOTED
[2020-02-14 20:00] VITALS: BP 93/57
--- NOTE | 2020-02-14 20:00 | NUR ---
Report received. Patient on COVID 19 isolation. 2 tests have been negative, but patient has been symptomatic. AAO. Denies SOB. O2 6 L venturi mask; sat 94%. Pharmacist here; patient will be started on Levaquin and Diflucan. Will monitor EKG. proced tech aware. Addendum: 02/15/20 at 0220 by AUDI MAYNARD RN Amended: Links added.
[2020-02-14] MEDS: ENOXAPARIN SODIUM 40 MG/0.4 ML DISP.SYRIN SQ SCH (20:54)
[2020-02-14] MEDS: levoFLOXacin 750MG/D5W 750 MG in PREMIXED 1 EACH IV SCH (20:55)
[2020-02-14] MEDS: FLUCONAZOLE 400MG /NS 200ML IV 400 MG in PREMIXED 1 EACH IV SCH (22:10)
[2020-02-15] VITALS: BP 102/63
[2020-02-15 04:00] VITALS: BP 109/79
[2020-02-15 06:21] LABS: BASOPHILS # (AUTO) 0.1 K/uL (0.0-8.0); BASOPHILS % (AUTO) 0.4 % (0.0-2.0); EOSINOPHILS # (AUTO) 0.2 K/uL (0.0-0.7); EOSINOPHILS % (AUTO) 1.1 % (0.0-7.0); HEMOGLOBIN 13.9 g/dL (12.5-16.3); LYMPHOCYTES # (AUTO) 2.3 K/uL (20.0-40.0); LYMPHOCYTES % (AUTO) 14.6 % (20.5-51.5); MEAN CORPUSCULAR HEMOGLOBIN 29.9 uug (23.8-33.4); MEAN CORPUSCULAR HGB CONC 33 g/dL (32.5-36.3); MEAN CORPUSCULAR VOLUME 91.9 fL (73.0-96.2); MONOCYTES # (AUTO) 1.1 K/uL (2.0-10.0); MONOCYTES % (AUTO) 6.9 % (0.0-11.0); NEUTROPHILS # (AUTO) 11.9 K/uL (1.8-8.9); PLATELET COUNT (AUTO) 603 K/uL (152-348); RED BLOOD CELL COUNT(AUTO) 4.67 MIL/uL (4.06-5.63); WHITE BLOOD COUNT (AUTO) 15.5 K/uL (3.6-10.2)
--- NOTE | 2020-02-15 06:39 | NUR ---
Remains on 6L O2 via venturi mask; sat 92-97%. [place] MAIN. Slept fairly well during the night. Addendum: 02/15/20 at 0640 by AUDI MAYNARD RN Amended: Links added.
[2020-02-15 06:47] LABS: CREATININE 0.9 mg/dL (0.6-1.3); POTASSIUM 3.8 mmol/L (3.5-5.1)
--- NOTE | 2020-02-15 08:00 | NUR ---
PATIENT IS ALERT, ORIENTED X4, CONTINUOUS ON VENTURI MASK ON 6 LITER OF OXYGEN, SATURATING AT 90-92%ALSO NOTED WITH NONPRODUCTIVE COUGH, PATIENT STATED HE FEELS FINE, NO ACUTE DISTRESS NOTED, CONTINUE TO MONITOR
[2020-02-15] MEDS: IPRATROPIUM BROMIDE 0.5 MG/2.5 ML NEBU NEB SCH ×3 (08:07→19:37)
[2020-02-15] MEDS: ALBUTEROL SULFATE 2.5 MG/ 0.5 ML NEBU NEB SCH ×3 (08:07→19:37)
[2020-02-15 08:57] VITALS: BP 106/71
[2020-02-15] MEDS: DEXAMETHASONE 4 MG TABLET PO SCH (08:58)
[2020-02-15 11:58] VITALS: BP 93/50
--- NOTE | 2020-02-15 12:09 | NUR ---
PATIENT IS ALERT, ORIENTED X4, SATURATING AT 88-91% WITH VENTURI MASK AT 6LITER OF OXYGEN, PATIENT STATED HE FEELS OK, TALKING TO HIS FAMILY, TOLERATING GOING TO BATHROOM, AND MEALS, NO DISTRESS NOTED, MORGUE ATTENDANT EMMA AWARE. CONTINUE TO MONITOR CLOSELY.
[2020-02-15 16:12] VITALS: BP 100/67
--- NOTE | 2020-02-15 18:29 | NUR ---
patient laying down in his bed, saturating at 93% with venturi mask at 6 liter, noted with nonproductive cough, still on droplet precautions, able to tolerate meals and ambulating to the bathroom. no distress noted, patient stated he feels OK, watching TV. continue to monitor
--- NOTE | 2020-02-15 19:40 | NUR ---
ALERT ORIENTED, NO SOB NO CHEST PAIN. PATIENT ON VENTURI MASK AT 6LPM, OXYGEN SAT 93 TO 100%, OXYGEN WENT LOWER WHEN DOING ACTIVITY SUCH TOILET, BUT GOES BACK TO NORMAL OXYGEN SOON PATIENT AT REST. CONT TO MONITOR.
[2020-02-15 20:30] VITALS: BP 108/54
[2020-02-15] MEDS: levoFLOXacin 750MG/D5W 750 MG in PREMIXED 1 EACH IV SCH (20:41)
[2020-02-15] MEDS: ENOXAPARIN SODIUM 40 MG/0.4 ML DISP.SYRIN SQ SCH (21:18)
[2020-02-15] MEDS: FLUCONAZOLE 400MG /NS 200ML IV 400 MG in PREMIXED 1 EACH IV SCH (22:42)
[2020-02-16] VITALS: BP 110/68
[2020-02-16 04:00] VITALS: BP 110/57
--- NOTE | 2020-02-16 06:29 | NUR ---
PATIENT ALERT ORIENTED, NO SOB NO CHEST PAIN, PATIENT ON TELE MONITOR SINUS RYTHM. PATIENT HAS COMPLAIN OF PAIN AT THIS TIME, PATIENT ON CONTINIOUS VENTURI MASK AT 6LPM, OXYGENT SAT RANGE FROM 88 TO 100%. PATIENT HAS NO COMPLAIN OF PAIN NOR DISCOMFORT, SOB, CONT TO MONITOR.
--- NOTE | 2020-02-16 07:30 | NUR ---
Received patient in bed, awake and verbally responsive. On Oxygen at 6L via venturi mask. saturating 92%. with episode of dry cough. No complain of Pain or discomfort. kept clean and comfortable. Will continue to monitor.
[2020-02-16] MEDS: ALBUTEROL SULFATE 2.5 MG/ 0.5 ML NEBU NEB SCH ×3 (08:30→19:14)
[2020-02-16] MEDS: IPRATROPIUM BROMIDE 0.5 MG/2.5 ML NEBU NEB SCH ×3 (08:30→19:14)
[2020-02-16] MEDS: DEXAMETHASONE 4 MG TABLET PO SCH (08:33)
[2020-02-16 11:40] VITALS: BP 133/86
[2020-02-16 12:07] LABS: ABG BASE EXCESS 3.9 mmol/L; ABG PCO2 50.3 mmHg (35.0-45.0); ABG PH 7.393 (7.350-7.450); ABG PO2 72.9 mmHg (75.0-100.0); ABG SITE RIGHT RADIAL; ABG TOTAL HEMOGLOBIN 15.7 G/dL (13.5-18.0); COHb 1.3 % (0.5-1.5); MetHb 0.2 % (0.0-1.5); VENT MODE Mask - Venturi - 50%
--- NOTE | 2020-02-16 12:36 | NUR ---
patient was placed on FiO2 35% by RT, will continue to monitor.
[2020-02-16 16:00] VITALS: BP 120/74
--- NOTE | 2020-02-16 18:16 | NUR ---
Patient is awake, alert and responsive. On Oxygen at 3L/FiO2 35% via venturi mask saturating 90-93%. No complain of pain or discomfort. All needs attended and met. kept clean and comfortable. Will endorse to Oncoming nurse.
--- NOTE | 2020-02-16 19:30 | NUR ---
patient received in bed watching soccer on TV. PIV intact and patent on saline lock. AAOx3. no s/s of acute distress. v/s stable at this time. on venturi mask 6L sat at 92%. NSR on tele monitor. safety measures in place. will attend to needs and administered needed medications. will continue to monitor and assess throughout shift.
[2020-02-16 20:10] VITALS: BP 131/76
[2020-02-16] MEDS: ENOXAPARIN SODIUM 40 MG/0.4 ML DISP.SYRIN SQ SCH (20:20)
[2020-02-16] MEDS: levoFLOXacin 750MG/D5W 750 MG in PREMIXED 1 EACH IV SCH (21:03)
[2020-02-16] MEDS: FLUCONAZOLE 400MG /NS 200ML IV 400 MG in PREMIXED 1 EACH IV SCH (21:42)
[2020-02-17 00:12] VITALS: BP 106/63
[2020-02-17] MEDS: IPRATROPIUM BROMIDE 0.5 MG/2.5 ML NEBU NEB SCH ×5 (01:19→19:26)
[2020-02-17] MEDS: ALBUTEROL SULFATE 2.5 MG/ 0.5 ML NEBU NEB SCH ×5 (01:20→19:26)
--- NOTE | 2020-02-17 03:58 | NUR ---
Medication scan @ 0357 due to error. Administered treatment to PT while awake @ 0120. Refer to RT interventions.
[2020-02-17 04:12] VITALS: BP 117/71
[2020-02-17 06:19] LABS: BASOPHILS # (AUTO) 0.1 K/uL (0.0-8.0); BASOPHILS % (AUTO) 0.4 % (0.0-2.0); EOSINOPHILS % (AUTO) 0.1 % (0.0-7.0); HEMATOCRIT 43.4 % (36.7-47.1); HEMOGLOBIN 14.1 g/dL (12.5-16.3); LYMPHOCYTES # (AUTO) 1.8 K/uL (20.0-40.0); LYMPHOCYTES % (AUTO) 11.5 % (20.5-51.5); MEAN CORPUSCULAR HEMOGLOBIN 29.8 uug (23.8-33.4); MEAN CORPUSCULAR HGB CONC 32 g/dL (32.5-36.3); MEAN CORPUSCULAR VOLUME 92.1 fL (73.0-96.2); MONOCYTES % (AUTO) 6.5 % (0.0-11.0); NEUTROPHILS # (AUTO) 12.8 K/uL (1.8-8.9); NEUTROPHILS % (AUTO) 81.5 % (38.5-71.5); PLATELET COUNT (AUTO) 561 K/uL (152-348); RED BLOOD CELL COUNT(AUTO) 4.72 MIL/uL (4.06-5.63); WHITE BLOOD COUNT (AUTO) 15.7 K/uL (3.6-10.2)
[2020-02-17 06:27] LABS: CREATININE 0.9 mg/dL (0.6-1.3); POTASSIUM 4.1 mmol/L (3.5-5.1)
--- NOTE | 2020-02-17 08:30 | NUR ---
Patient in bed, awake, alert and verbally responsive. Paced on Oxygen at 3L via Nasal canula, saturating 88-94%. No complain of pain or discomfort. Afebrile. Kept clean and comfortable. Will continue to monitor.
[2020-02-17 11:35] VITALS: BP 118/84
[2020-02-17 16:29] VITALS: BP 129/95
--- NOTE | 2020-02-17 17:59 | NUR ---
Patient in bed, awake, alert and verbally responsive. On Oxygen at 3L via nasal canula, saturating 92%. No complain of pain or discomfort. Afebrile. All needs attended and met. Kept the call light within easy reach. Will endorse to Oncoming Nurse.
--- NOTE | 2020-02-17 19:30 | NUR ---
Patient in bed. AAOx4. Pt denies any acute distress or pain at this time. Pt is NSR 90 on tele monitor. V/S stable, on 3L NC saturating at 90%. Pt having episodes of non productive cough. Pt afebrile. RAC IV is intact. Safety measures in place. Bed low and locked in position. Personal belongings and call light within reach. Will continue with the plan of care.
[2020-02-17] MEDS: levoFLOXacin 750MG/D5W 750 MG in PREMIXED 1 EACH IV SCH (20:05)
[2020-02-17 20:10] VITALS: BP 120/80
[2020-02-17] MEDS: ENOXAPARIN SODIUM 40 MG/0.4 ML DISP.SYRIN SQ SCH (20:58)
[2020-02-17] MEDS: FLUCONAZOLE 400MG /NS 200ML IV 400 MG in PREMIXED 1 EACH IV SCH (22:04)
[2020-02-18 00:21] VITALS: BP 122/88
[2020-02-18 05:43] VITALS: BP 106/74
[2020-02-18 06:23] LABS: BASOPHILS # (AUTO) 0.1 K/uL (0.0-8.0); BASOPHILS % (AUTO) 0.8 % (0.0-2.0); EOSINOPHILS # (AUTO) 0.4 K/uL (0.0-0.7); EOSINOPHILS % (AUTO) 2.4 % (0.0-7.0); HEMOGLOBIN 14.3 g/dL (12.5-16.3); LYMPHOCYTES # (AUTO) 3.7 K/uL (20.0-40.0); LYMPHOCYTES % (AUTO) 24.5 % (20.5-51.5); MEAN CORPUSCULAR HEMOGLOBIN 29.9 uug (23.8-33.4); MEAN CORPUSCULAR HGB CONC 32 g/dL (32.5-36.3); MEAN CORPUSCULAR VOLUME 92.3 fL (73.0-96.2); MONOCYTES % (AUTO) 6.6 % (0.0-11.0); NEUTROPHILS # (AUTO) 9.8 K/uL (1.8-8.9); NEUTROPHILS % (AUTO) 65.7 % (38.5-71.5); PLATELET COUNT (AUTO) 553 K/uL (152-348); RED BLOOD CELL COUNT(AUTO) 4.77 MIL/uL (4.06-5.63); WHITE BLOOD COUNT (AUTO) 14.9 K/uL (3.6-10.2)
[2020-02-18 06:30] LABS: CREATININE 0.9 mg/dL (0.6-1.3); POTASSIUM 4.2 mmol/L (3.5-5.1)
--- NOTE | 2020-02-18 06:57 | NUR ---
Pt slept intermittently through the night. Pt awake and denies any acute distress or pain at this time. V/S stable, on 3L NC saturating at 90%. NSR 91 on tele monitor. Pt. afebrile, with few episodes of non productive cough. Comfort care and needs attended. Prescribed meds given, pt tolerated. Safety measures in place. Bed low and locked in position. Call light within reach. Will endorse to the oncoming nurse accordingly.
--- NOTE | 2020-02-18 07:45 | NUR ---
Patient in bed, awake, alert and verbally responsive. On Oxygen at 3L via Nasal canula, saturating 91%. No complain of pain or discomfort. Covid 19 rapid was negative, DESKTOP PUBLISHING ASSOCIATE Obrien made aware. Kept clean and comfortable. Kept the call light within easy reach. Will continue to monitor.
[2020-02-18] MEDS: IPRATROPIUM BROMIDE 0.5 MG/2.5 ML NEBU NEB SCH ×3 (08:33→20:09)
[2020-02-18] MEDS: ALBUTEROL SULFATE 2.5 MG/ 0.5 ML NEBU NEB SCH ×3 (08:33→20:09)
[2020-02-18 12:05] VITALS: BP 106/64
[2020-02-18 16:54] VITALS: BP 106/77
--- NOTE | 2020-02-18 18:01 | NUR ---
Patient in awake, alert and verbally responsive. On Oxygen at 3L via nasal canula, saturating 88-93%. No complain of pain or discomfort noted. kept clean and comfortable. kept the call light within easy reach. Will endorse to Oncoming Nurse.
--- NOTE | 2020-02-18 19:20 | NUR ---
Received patient sitting in bed. Pt denies any SOB or pain at this time. Pt on 3L NC at 89%, V/S stable. Pt is afebrile, just having few episodes of productive cough. RAC 22 is intact. Safety measures in place. Personal belongings and call light within reach. Will continue with the plan of care.
[2020-02-18] MEDS: levoFLOXacin 750MG/D5W 750 MG in PREMIXED 1 EACH IV SCH (20:01)
[2020-02-18 20:13] VITALS: BP 100/60
[2020-02-18] MEDS: ENOXAPARIN SODIUM 40 MG/0.4 ML DISP.SYRIN SQ SCH (21:05)
[2020-02-18] MEDS: FLUCONAZOLE 400MG /NS 200ML IV 400 MG in PREMIXED 1 EACH IV SCH (22:09)
[2020-02-19 00:03] VITALS: BP 102/70
[2020-02-19 04:41] VITALS: BP 103/72
--- NOTE | 2020-02-19 06:35 | NUR ---
Pt slept intermittently through the night. Patient is awake and denies any acute distress or pain at this time. Pt is NSR 94 on tele monitor. On 3L NC at 90%. V/S stable, afebrile. Few episodes of non productive cough noted. Comfort care and needs attended. Safety measures in place. Personal belongings and call light within reach. Will endorse to the oncoming nurse accordingly.
[2020-02-19] MEDS: IPRATROPIUM BROMIDE 0.5 MG/2.5 ML NEBU NEB SCH ×3 (08:18→19:52)
[2020-02-19] MEDS: ALBUTEROL SULFATE 2.5 MG/ 0.5 ML NEBU NEB SCH ×3 (08:18→19:52)
[2020-02-19 12:46] VITALS: BP 121/68
[2020-02-19 16:12] VITALS: BP 103/63
--- NOTE | 2020-02-19 20:00 | NUR ---
Received patient awake and alert. Patient shows no signs or symptoms of distress at this time. Vital signs stable. NSR on tele monitor. Afebrile with no complaints of SOB at this time. Bed set to lowest position. Call light within reach. Side rails x2 are up. Will continue to monitor patient.
[2020-02-19 20:05] VITALS: BP 99/58
[2020-02-19] MEDS: levoFLOXacin 750MG/D5W 750 MG in PREMIXED 1 EACH IV SCH (20:15)
[2020-02-19] MEDS: ENOXAPARIN SODIUM 40 MG/0.4 ML DISP.SYRIN SQ SCH (20:18)
[2020-02-19] MEDS: FLUCONAZOLE 400MG /NS 200ML IV 400 MG in PREMIXED 1 EACH IV SCH (21:54)
[2020-02-20] VITALS: BP 105/58
[2020-02-20 04:00] VITALS: BP 100/54
--- NOTE | 2020-02-20 06:27 | NUR ---
Patient shows no signs or symptoms of distress at this time. NSR/ST on tele monitor. Will endorse patient to day shift nurse in stable condition.
[2020-02-20 07:27] LABS: BASOPHILS # (AUTO) 0.1 K/uL (0.0-8.0); BASOPHILS % (AUTO) 0.5 % (0.0-2.0); EOSINOPHILS # (AUTO) 0.6 K/uL (0.0-0.7); EOSINOPHILS % (AUTO) 4.5 % (0.0-7.0); HEMATOCRIT 44.9 % (36.7-47.1); HEMOGLOBIN 14.5 g/dL (12.5-16.3); LYMPHOCYTES # (AUTO) 2.7 K/uL (20.0-40.0); LYMPHOCYTES % (AUTO) 20.2 % (20.5-51.5); MEAN CORPUSCULAR HEMOGLOBIN 29.9 uug (23.8-33.4); MEAN CORPUSCULAR HGB CONC 32 g/dL (32.5-36.3); MEAN CORPUSCULAR VOLUME 92.5 fL (73.0-96.2); MONOCYTES # (AUTO) 0.9 K/uL (2.0-10.0); MONOCYTES % (AUTO) 6.3 % (0.0-11.0); NEUTROPHILS # (AUTO) 9.2 K/uL (1.8-8.9); NEUTROPHILS % (AUTO) 68.5 % (38.5-71.5); PLATELET COUNT (AUTO) 482 K/uL (152-348); RED BLOOD CELL COUNT(AUTO) 4.86 MIL/uL (4.06-5.63); WHITE BLOOD COUNT (AUTO) 13.5 K/uL (3.6-10.2)
[2020-02-20 07:36] LABS: POTASSIUM 4.4 mmol/L (3.5-5.1)
[2020-02-20] MEDS: IPRATROPIUM BROMIDE 0.5 MG/2.5 ML NEBU NEB SCH ×3 (09:24→19:50)
[2020-02-20] MEDS: ALBUTEROL SULFATE 2.5 MG/ 0.5 ML NEBU NEB SCH ×3 (09:24→19:50)
[2020-02-20 11:50] VITALS: BP 123/88
[2020-02-20 16:00] VITALS: BP 107/74
--- NOTE | 2020-02-20 19:45 | NUR ---
Received patient awake. Patient shows no signs or symptoms of distress at this time. Vital signs stable. Afebrile and denies having any SOB at this time. Only has SOB with exertion. NSR / Sinus tach on tele monitor. 3L NC with O2 saturation at 92%. Bed set to lowest position. Side rails x2 are up. Call light within reach. Will continue to monitor patient.
[2020-02-20] MEDS: FLUCONAZOLE 200 MG TABLET PO SCH (20:08)
[2020-02-20] MEDS: ENOXAPARIN SODIUM 40 MG/0.4 ML DISP.SYRIN SQ SCH (20:09)
[2020-02-20 20:18] VITALS: BP 111/67
[2020-02-20] MEDS: levoFLOXacin 750 MG TABLET PO SCH (20:55)
[2020-02-21] VITALS: BP 120/65
[2020-02-21 04:00] VITALS: BP 115/67
[2020-02-21 06:19] LABS: BASOPHILS # (AUTO) 0.1 K/uL (0.0-8.0); BASOPHILS % (AUTO) 0.7 % (0.0-2.0); EOSINOPHILS # (AUTO) 0.6 K/uL (0.0-0.7); EOSINOPHILS % (AUTO) 4.6 % (0.0-7.0); HEMATOCRIT 44.3 % (36.7-47.1); HEMOGLOBIN 14.3 g/dL (12.5-16.3); LYMPHOCYTES # (AUTO) 2.5 K/uL (20.0-40.0); LYMPHOCYTES % (AUTO) 19.4 % (20.5-51.5); MEAN CORPUSCULAR HEMOGLOBIN 29.9 uug (23.8-33.4); MEAN CORPUSCULAR HGB CONC 32 g/dL (32.5-36.3); MEAN CORPUSCULAR VOLUME 92.4 fL (73.0-96.2); MONOCYTES # (AUTO) 0.9 K/uL (2.0-10.0); MONOCYTES % (AUTO) 6.7 % (0.0-11.0); NEUTROPHILS # (AUTO) 8.8 K/uL (1.8-8.9); NEUTROPHILS % (AUTO) 68.6 % (38.5-71.5); PLATELET COUNT (AUTO) 423 K/uL (152-348); RED BLOOD CELL COUNT(AUTO) 4.79 MIL/uL (4.06-5.63); WHITE BLOOD COUNT (AUTO) 12.8 K/uL (3.6-10.2)
--- NOTE | 2020-02-21 06:29 | NUR ---
Patient shows no signs or symptoms of distress at this time. Vital signs stable. 95% O2 on 3L NC. Afebrile throughout the shift. NSR on tele monitor. Will endorse patient to day shift nurse in stable condition.
[2020-02-21 06:30] LABS: POTASSIUM 4.6 mmol/L (3.5-5.1)
[2020-02-21 06:31] LABS: MAGNESIUM 1.9 mg/dL (1.8-2.4); PHOSPHOROUS 4.7 mg/dL (2.5-4.9)
--- NOTE | 2020-02-21 07:30 | NUR ---
Received pt in bed awake AOx4 on O2 @ 3L with RR 26 but pt denies SOB or distress at this time, on continuous pulse ox. On Tele SR denied chest pain. IV on right AC 20g flushed and patent. Bed locked in lowest position with siderails 2x up. Call light and phone within reach
[2020-02-21 08:25] VITALS: BP 106/70
[2020-02-21] MEDS: IPRATROPIUM BROMIDE 0.5 MG/2.5 ML NEBU NEB SCH ×3 (08:42→20:30)
[2020-02-21] MEDS: ALBUTEROL SULFATE 2.5 MG/ 0.5 ML NEBU NEB SCH ×3 (08:43→20:30)
[2020-02-21 09:01] LABS: ABG BASE EXCESS 9.5 mmol/L; ABG HCO3 37.3 mmol/L; ABG PCO2 62.9 mmHg (35.0-45.0); ABG PH 7.391 (7.350-7.450); ABG PO2 70.3 mmHg (75.0-100.0); ABG SITE RIGHT RADIAL; COHb 1.4 % (0.5-1.5); MetHb 0.2 % (0.0-1.5); O2Hb 93.3 % (94.0-97.0); VENT MODE Nasal Cannula
--- NOTE | 2020-02-21 10:00 | NUR ---
Dr. Butler came in to see pt. Ordered to decrease O2 to 2L from 3L, goal 88-92%. Pt is 95-96% on O2 @ 2L NC. Denies SOB or dsypnea at this time. Will monitor
[2020-02-21 10:07] LABS: CRYPTOCOCCUS AB, SERUM Negative (Negative)
[2020-02-21] MEDS: ACETAzolamide SODIUM 500 MG VIAL IV SCH (11:01)
[2020-02-21 11:30] VITALS: BP 134/95
--- NOTE | 2020-02-21 12:16 | NUR ---
Pt O2 desaturates to 85% on RA while at rest
[2020-02-21 15:42] VITALS: BP 109/74
--- NOTE | 2020-02-21 15:59 | NUR ---
Someone from [employer] came in to drop off portable oxygen tank and educate pt on how to use it.
--- NOTE | 2020-02-21 19:45 | NUR ---
Received patient awake and alert. Patient shows no signs or symptoms of distress at this time. Vital signs stable. Sinus tachycardia on monitor. O2 saturation 91% on 2L NC. Patient c/o of SOB with exertion. Bed set to lowest position. Side rails X2 are up. Call light within reach. Will continue to monitor patient.
[2020-02-21] MEDS: levoFLOXacin 750 MG TABLET PO SCH (19:59)
[2020-02-21] MEDS ORDERED: FLUCONAZOLE 200 MG TABLET PO SCH (20:00)
[2020-02-21 20:03] VITALS: BP 130/84
[2020-02-21] MEDS: FLUCONAZOLE 200 MG TABLET PO SCH (20:58)
[2020-02-21] MEDS: ENOXAPARIN SODIUM 40 MG/0.4 ML DISP.SYRIN SQ SCH (21:00)
[2020-02-22 00:03] VITALS: BP 103/68
[2020-02-22 04:03] VITALS: BP 108/65
--- NOTE | 2020-02-22 06:40 | NUR ---
Patient shows no signs or symptoms of distress at this time O2 saturation at 93% with 2L NC while resting. Vital signs stable. Afebrile throughout the shift. Will endorse patient to day shift nurse in stable condition.
[2020-02-22 08:00] VITALS: BP 123/85
--- NOTE | 2020-02-22 08:00 | NUR ---
Patient in bed asleep but arousable to name, still desturates when asleep, on O2 @ 2L 95%, denies SOB or distress at this time. On tele SR, denies chest pain. IV on left AC 18g flushed and patent. No other complaints at this time. Bed locked in lowest position with siderails 2x up. Call light and phone within reach.
[2020-02-22] MEDS: IPRATROPIUM BROMIDE 0.5 MG/2.5 ML NEBU NEB SCH ×2 (08:29→13:30)
[2020-02-22] MEDS: ALBUTEROL SULFATE 2.5 MG/ 0.5 ML NEBU NEB SCH ×2 (08:29→13:30)
[2020-02-22] MEDS: ACETAzolamide SODIUM 500 MG VIAL IV SCH (09:02)
[2020-02-22] MEDS ORDERED: FLUC200T PO (11:23)
[2020-02-22] MEDS ORDERED: ACET650S26 GT (11:23)
[2020-02-22] MEDS ORDERED: LEVO750T21 PO (11:23)
[2020-02-22] MEDS ORDERED: ACET500V6 PO (11:23)
[2020-02-22] MEDS ORDERED: ALBU8HFA4 IH (11:23)
[2020-02-22] MEDS ORDERED: IPRA0.2S6 NEB (11:23)
--- NOTE | 2020-02-22 11:52 | NUR ---
SHE received a call from patient's nurse, Berry, who stated that the patient and patient's family were requesting a medical condition letter for the patient. SHE assisted Berry and Buyer Agent Yesica to complete this letter. The letter was signed by Buyer Agent Yesica, and then provided to Berry to give to the patient. Berry stated she will provide it to the patient. A copy of the letter was filed in the patient's chart.
[2020-02-22 12:00] VITALS: BP 97/63
--- NOTE | 2020-02-22 12:03 | NUR ---
Oxygen tank was brought in yesterday by [employer]. Reeducated pt on the use of oxygen tank, return demonstration done by patient. Gave resources and flyer for [facility] for sleep study. Informed that he has to go for a walk-in to schedule a sleep study due to his insurance. Patient verbalized understanding. Letter requested by patient and regarding unable to return to work was also given to patient
--- NOTE | 2020-02-22 16:00 | NUR ---
Pt discharged, ambulatory and picked up by Kimberlee. On O2 @ 2L with portable oxygen, no distress at this time. DC instructions and forms signed and given to patient. DC prescription medication list also given to patient. Belongings list signed all accounted for. IV on right AC 20g and ID band removed.
[2020-02-22 19:06] LABS: COCCIDIOIDES CF SERUM Negative (Neg:<1:2)
[2020-02-25 17:24] LABS: HISTOPLASMA AB 0
== END 2020-02-22 16:00 | disposition home or self-care (01) | DRG 720 ==
LOC: ER 10:51 → TELE3 13:07
PROVIDERS: ADMIT Internal Medicine; ATTEND Nurse Practitioner Acute Care
PROC: 5A09357 Assistance with Respiratory Ventilation, Less than 24 Consecutive Hours, Continuous Positive Airway Pressure (ICD-10-PCS; principal; 2020-02-10)
DX: A41.9 Sepsis, unspecified organism (principal); J15.9 Unspecified bacterial pneumonia; J96.01 Acute respiratory failure with hypoxia; I44.1 Atrioventricular block, second degree; E44.0 Moderate protein-calorie malnutrition; Z68.32 Body mass index [BMI] 32.0-32.9, adult; J96.02 Acute respiratory failure with hypercapnia; K76.0 Fatty (change of) liver, not elsewhere classified; E88.09 Other disorders of plasma-protein metabolism, not elsewhere classified; R74.0 Nonspecific elevation of levels of transaminase and lactic acid dehydrogenase [LDH]; R65.20 Severe sepsis without septic shock; E66.9 Obesity, unspecified; G47.33 Obstructive sleep apnea (adult) (pediatric); J12.9 Viral pneumonia, unspecified; I50.30 Unspecified diastolic (congestive) heart failure; R59.0 Localized enlarged lymph nodes
CPT/HCPCS: 36415; 36600; 70030-TC; 71045; 71275; 83605; 83615; 83735; 84100; 84443; 85025; 85730; 86140; 86803; 87040; 87070; 87328; 87806; 93005; 93307; 94640; 94660; 94664; A4663; G0378; J0456; J0696; J1120; J1450; J1650; J1956; J3535; J3590; J7030; J7040; J7050; J7060; J8540; Q9967; U0003-CS